=== PATIENT | male | born 1975 | race Caucasian/White ===

== ENCOUNTER 2022-02-25 05:28 | Emergency (ER) | payer BC ==
[2022-02-25] MEDS ORDERED: TYLENOL 325 MG ONE (06:10)
[2022-02-25] MEDS: TYLENOL 325 MG PO ONE (06:10)
[2022-02-25 06:25] LABS: Absolute Neutrophil Ct (ANC) 5.36 x10^3/uL (1.4-6.9); Basophil (Absolute #) 0.02 x10^3/uL (0-0.4); Eosinophil % 0.6 % (0.00-5.0); Eosinophil (Absolute #) 0.05 x10^3/uL (0-0.5); Hematocrit 49.9 % (42-50); Hemoglobin 17.1 g/dL (12.5-18.0); Lymphocyte (Absolute #) 1.83 x10^3/uL (1.0-4.6); Lymphocytes % 23.7 % (24.0-44.0); Mean Cell Volume 91.6 fL (78-100); Mean Corpuscular Hemoglobin 31.4 pg (26-32); Mean Corpuscular Hgb Concent. 34.3 g/dL (32-36); Mean Platelet Volume 9.3 fL (7.5-11.0); Monocyte (Absolute #) 0.44 x10^3/uL (0.0-1.3); Monocytes % 5.7 % (0.0-12.0); Neutrophil % 69.4 % (36.0-66.0); Platelet Count 210 x10^3/uL (150-450); Red Blood Count 5.45 x10^6/uL (4.1-5.6); Red Cell Distribution Width 12.1 % (11.5-14.0); White Blood Count 7.7 x10^3/uL (4.0-10.5)
[2022-02-25 06:48] LABS: ALBUMIN 3.6 g/dL (3.5-5.0); ALKALINE PHOSPHATASE 86 U/L (38-126); ANION GAP 10.9 MEQ/L (5-15); BLOOD UREA NITROGEN 12 mg/dL (9-20); CHLORIDE 106 mmol/L (98-107); Carbon Dioxide 24 mmol/L (22-30); Creatinine 1 0.92 mg/dL (0.66-1.25); EST GLOMERULAR FILTRATION RATE > 60.0 ML/MIN; Glucose 139 mg/dL (74-106); NT PRO BNP 45.3 pg/mL (0-450); Potassium 3.7 mmol/L (3.5-5.1); SGOT/AST 21 U/L (17-59); SGPT/ALT 19 U/L (0-50); SODIUM 137 mmol/L (137-145); Total Protein 6.8 g/dL (6.3-8.2)
--- NOTE | 2022-02-25 06:48 | ERPHSYRPT ---
- History of Present Illness Time Seen by Provider: 02/25/22 05:45 Source: patient Exam Limitations: no limitations Patient Subjective Stated Complaint: pt states he has had rt posterior neck pain followed by headache for the last 2 days with high blood pressure. states last bp at home was 185/119. also has some nonradiating chest pain for last week. Triage Nursing Assessment: pt alert and oriented, answers questions approp. pt ambulatory with steady gait noted. skin warm and dry. pupils equal and reactive. bilat upper and lower ext strength equal and reactive. heart rate 96 on monitor, sinus rhythm. Physician History: Patient is a 46-year-old male presents to our ED with complaints of right posterior neck pain headache behind his eyes elevated blood pressure and left chest wall pain. Patient states the symptoms have been ongoing for approximately 2 days. Patient states he develops headaches usually 2 times per week. No associated nausea vomiting. No diarrhea. No diaphoresis. Symptoms are intermittent. Symptoms are moderate in intensity. No specific worsening improving factors. Patient voices no other complaints concerns at this time. Timing/Duration: day(s) Severity: moderate (2 days) Modifying Factors: Improves With: nothing, other (Patient's headache is light sensitive.) Associated Symptoms: denies symptoms, No nausea, No vomiting, No headaches, No syncope, No seizure, No weakness Allergies/Adverse Reactions: Penicillins Allergy (Unknown, Verified 02/25/22 06:08) Hx Tetanus, Diphtheria Vaccination/Date Given: No Hx Influenza Vaccination/Date Given: No Hx Pneumococcal Vaccination/Date Given: No Immunizations Up to Date: No Travel Risk - International Travel Have you traveled outside of the country in past 3 weeks: No - Coronavirus Screening Are you exhibiting any of the following symptoms?: No Close contact with a COVID-19 positive Pt in past 14-21 Days: No - Vaccine Status Have you recieved a Covid-19 vaccination: No - Review of Systems Constitutional: No Symptoms, No Fever, No Chills Eyes: No Symptoms Ears, Nose, & Throat: No Symptoms Respiratory: No Symptoms, No Cough, No Dyspnea Cardiac: No Symptoms, No Chest Pain, No Edema, No Syncope Abdominal/Gastrointestinal: No Symptoms, No Abdominal Pain, No Nausea, No Vomiting, No Diarrhea Genitourinary Symptoms: No Symptoms, No Dysuria Musculoskeletal: No Symptoms, No Back Pain, No Neck Pain Skin: No Symptoms, No Rash Neurological: No Symptoms, No Dizziness, No Focal Weakness, No Sensory Changes Psychological: No Symptoms Endocrine: No Symptoms Hematologic/Lymphatic: No Symptoms Immunological/Allergic: No Symptoms All Other Systems: Reviewed and Negative - Past Medical History Pertinent Past Medical History: Yes Neurological History: Migraines Cardiac History: Hypertension GI Medical History: GERD - Past Surgical History Past Surgical History: Yes Musculoskeletal: Orthopedic Surgery Other Surgical History: rt arm surgery for fx with hardware and hardware removal - Social History Smoking Status: Current every day smoker How long have you smoked: yrs Exposure to second hand smoke: No Drug Use: marijuana Patient Lives Alone: Yes - Nursing Vital Signs Nursing Vital Signs: Initial Vital Signs Temperature 97.7 F 02/25/22 05:30 Pulse Rate 102 H 02/25/22 05:30 Respiratory Rate 16 02/25/22 05:30 Blood Pressure 167/115 02/25/22 05:30 O2 Sat by Pulse Oximetry 98 02/25/22 05:30 Pain Scale Pain Intensity 4 - Physical Exam General Appearance: no apparent distress, alert Eye Exam: PERRL/EOMI, eyes nml inspection Ears, Nose, Throat Exam: normal ENT inspection, TMs normal, pharynx normal, moist mucous membranes Neck Exam: normal inspection, non-tender, supple, full range of motion Respiratory Exam: normal breath sounds, lungs clear, airway intact, No respiratory distress Cardiovascular Exam: regular rate/rhythm, normal heart sounds, normal peripheral pulses, other (Left chest wall tenderness. Pain reproduced with palpation to chest wall.) Gastrointestinal/Abdomen Exam: soft, normal bowel sounds, No tenderness, No mass Back Exam: normal inspection, normal range of motion, No CVA tenderness, No vertebral tenderness Extremity Exam: normal inspection, normal range of motion, pelvis stable Neurologic Exam: alert, oriented x 3, cooperative, normal mood/affect, nml cerebellar function, nml station & gait, sensation nml, No motor deficits Skin Exam: normal color, warm, dry, No rash Lymphatic Exam: No adenopathy SpO2 Interpretation: normal SpO2: 98 O2 Delivery: Room Air - Course Nursing assessment & vital signs reviewed: Yes Ordered Tests: Active Orders 24 hr Category Date Time Status Slate Worker STAT Care 02/25/22 05:54 Active EKG-ER Only STAT Care 02/25/22 05:53 Active IV Insertion STAT Care 02/25/22 05:53 Active Pulse Oximetry (ED) STAT Care 02/25/22 05:53 Active CHEST 1 VIEW (PORTABLE) Stat Exams 02/25/22 05:53 Taken HEAD WITHOUT CONTRAST [CT] Stat Exams 02/25/22 05:55 Taken CBC W DIFF Stat Lab 02/25/22 06:06 Completed CMP Stat Lab 02/25/22 05:53 Received NT PRO BNP Stat Lab 02/25/22 05:53 Received TROPONIN Q3H Lab 02/25/22 06:06 Received TROPONIN Q3H Lab 02/25/22 09:00 Ordered TROPONIN Q3H Lab 02/25/22 12:00 Ordered TROPONIN Q3H Lab 02/25/22 15:00 Ordered TROPONIN Q3H Lab 02/25/22 18:00 Ordered Medication Summary Discontinued Medications Generic Name Dose Route Start Last Admin Trade Name Yakovq PRN Reason Stop Dose Admin Acetaminophen 975 mg 02/25/22 05:53 02/25/22 06:10 Acetaminophen 325 Mg Tablet PO 02/25/22 05:54 975 mg STAT ONE Administration Acetaminophen Confirm 02/25/22 06:10 Acetaminophen 325 Mg Tablet Administered 02/25/22 06:11 Dose 975 mg .ROUTE .[employer] ONE Lab/Rad Data: Laboratory Result Diagrams 02/25/22 06:06 Laboratory Results 02/25/22 Range/Units 06:06 WBC 7.7 (4.0-10.5) x10^3/uL RBC 5.45 (4.1-5.6) x10^6/uL Hgb 17.1 (12.5-18.0) g/dL Hct 49.9 (42-50) % MCV 91.6 (78-100) fL MCH 31.4 (26-32) pg MCHC 34.3 (32-36) g/dL RDW 12.1 (11.5-14.0) % Plt Count 210 (150-450) x10^3/uL MPV 9.3 (7.5-11.0) fL Gran % 69.4 H (36.0-66.0) % Immature Gran % (Auto) 0.3 (0.00-0.4) % Nucleat RBC Rel Count 0.0 (0.00-0.1) % Eos # (Auto) 0.05 (0-0.5) x10^3/uL Immature Gran # (Auto) 0.02 (0.00-0.03) x10^3u/L Absolute Lymphs (auto) 1.83 (1.0-4.6) x10^3/uL Absolute Monos (auto) 0.44 (0.0-1.3) x10^3/uL Absolute Nucleated RBC 0.00 (0.00-0.01) x10^3u/L Lymphocytes % 23.7 L (24.0-44.0) % Monocytes % 5.7 (0.0-12.0) % Eosinophils % 0.6 (0.00-5.0) % Basophils % 0.3 (0.0-0.4) % Absolute Granulocytes 5.36 (1.4-6.9) x10^3/uL Basophils # 0.02 (0-0.4) x10^3/uL - Progress Progress: improved Progress Note: Labs pending. CT head pending. Patient resting in room. We will continue to monitor his blood pressure. I expect that once his headache resolves blood pressure should improve. Change of shift at this time. Patient endorsed Dr. Irizarry for final disposition. 02/25/22 06:51 - Departure Clinical Impression: Migraine, Chest wall pain Condition: Stable Critical Care Time: No
[2022-02-25] MEDS ORDERED: Compazine 10 MG/2 ML ONE (07:25)
[2022-02-25] MEDS ORDERED: Lopressor 50 MG ONE (07:25)
[2022-02-25] MEDS ORDERED: NORVASC 5 MG ONE (07:25)
[2022-02-25] MEDS: Compazine 10 MG/2 ML IV ONE (07:27)
[2022-02-25] MEDS: NORVASC 5 MG PO ONE (07:27)
[2022-02-25] MEDS: Lopressor 50 MG PO SCH (07:27)
[2022-02-25] MEDS ORDERED: TORAdol 30 mg Injection ONE (08:07)
[2022-02-25] MEDS: TORAdol 30 mg Injection IV ONE (08:07)
[2022-02-25 08:48] LABS: Group A Strep NOT DETECTED (NEGATIVE)
[2022-02-25 08:59] LABS: INFLUENZA A NEGATIVE (NEGATIVE); INFLUENZA B NEGATIVE (NEGATIVE); RESPIRATORY SYNCTIAL VIRUS NEGATIVE (Negative); SARS-CoV-2 Xpert Express NEGATIVE (NEGATIVE)
--- NOTE | 2022-02-25 09:07 | XRAY ---
Indication: Migraine headache. Mass. Multiple contiguous axial images obtained through the head without contrast. Comparison: None Normal appearing brain parenchyma, ventricles, and bony calvarium. Visualized paranasal sinuses and mastoid air cells are clear. Impression: Normal CT head without contrast exam. Comment: Preliminary interpretation made by [facility]. No critical discrepancy.
--- NOTE | 2022-02-25 09:09 | XRAY ---
Indication: Hypertension. Comparison: None Portable chest demonstrates minimal right midlung subsegmental atelectasis/scarring. Remaining heart and lungs normal. Bony thorax intact.
[2022-02-25 09:19] VITALS: BP 143/112; PULSE 64; O2SAT 98
== END 2022-02-25 09:20 | disposition home or self-care (01) ==
LOC: ED 05:28
DX: G43.909 Migraine, unspecified, not intractable, without status migrainosus (principal); R07.89 Other chest pain; I10 Essential (primary) hypertension; M54.2 Cervicalgia; Z72.0 Tobacco use; Z20.828 Contact with and (suspected) exposure to other viral communicable diseases
CPT/HCPCS: 0241U; 36000; 36415; 70450; 71045; 80053; 83880; 84484; 85025; 87651; 93005; 93041; 94760; 96374; 96375; 99284; J1885; A9270-GY